=== PATIENT | male | born 1980 | race Caucasian/White ===

== ENCOUNTER 2018-11-23 11:55 | Day surgery (SDC) | payer SELFPAY ==
[~2018-11-23] VITALS: Ht 175.3 cm; Wt 93.1 kg
[~2018-11-23 11:55] MED LIST: ALBIPROI INH; ALBU90OI; ALBU90OI INH; ALBU90OI61 INH; CEPH500 PO; DICL100ER PO; FLUSAL2505; FLUSAL2505 INH; HYDACE10B PO; HYDACE5 PO; IBUP600 PO; IBUP800 PO; NAPR550 PO; Naprosyn375 MG PO; PRED20 PO; RXNAPNA550 PO; Ventolin Soln3 ML INH
--- NOTE | 2018-11-23 12:33 | NUR ---
Ambulatory in Day Surgery History, Chart, Medications and Allergies reviewed before start of procedure.Lungs clear T/O to Auscultation. Patient confirms NPO status and agrees with scheduled surgery. Patient reports completing Chlorhexadine shower X2 prior to admission to hospital.Surgical site prepped with 2% Chlorhexidine cloth wipe. Patient States Post-Procedure ride home has been arranged.
--- NOTE | 2018-11-23 17:00 | NUR ---
INTO STEP VIA [facility]. PT A&OX3.REPORTS 9/10 ABDOMINAL INCISIONAL PAIN. MED WITH FENTANYL 25 MCG IVP X1, REGLAN 10 MG IVPX1, AND NORCO 5/325 MG 1 TAB PO. PT TOLERATING SIPS OF FLUIDS WELL AT THIS TIME. INCISIONS TO ABDOMEN X3 WITH DERMABOND-ALL THREE C/D/I. RX FOR PAIN MED HAS BEEN GIVEN TO PT SPOUSE AND HAS ALREADY BEEN DROPPED OFF AT PT PHARMACY.
--- NOTE | 2018-11-23 18:00 | NUR ---
PT AMBULATED TO [facility] WITHOUT DIFFICULTY. PT REPORTS MILD BURNING WITH URINATION. COMPRESSION SHORTS ON-PT GIVEN ICE BAGS X 2. DERMABOND TO ABDOMEN X3 REMAINS C/D/I. REVIEWED DISCHARGE INSTRUCTIONS WITH PT AND HIS JAVED. BOTH PT AND HIS SPOUSE VERBALIZE/DEMONSTRATE UNDERSTANDING.PT DISCHARGED TO HOME, OUT VIA WHEELCHAIR-BELONGINGS AND DISCHARGE INSTRUCTIONS ON HAND.
--- NOTE | 2018-11-27 09:51 | NUR ---
11/27/18 0951 Marlyn Andrade CONFIRMED COUNTS WITH Raymond CHAVEZ RN.
== END 2018-11-23 18:00 | disposition home or self-care (01) ==
LOC: ORSCMMR 11:55 → ORD 13:30 → ORSCMMR 13:30
PROVIDERS: Surgery
PROC: 8E0W4CZ Robotic Assisted Procedure of Trunk Region, Percutaneous Endoscopic Approach (ICD-10-PCS; principal; 2018-11-23 13:00)
PROC: 0YU64JZ Supplement Left Inguinal Region with Synthetic Substitute, Percutaneous Endoscopic Approach (ICD-10-PCS; principal; 2018-11-23 13:00)
DX: K40.30 Unilateral inguinal hernia, with obstruction, without gangrene, not specified as recurrent (principal); Z87.891 Personal history of nicotine dependence; J45.909 Unspecified asthma, uncomplicated; Z79.899 Other long term (current) drug therapy
CPT/HCPCS: 49650; S2900; A9270-GY; C1781; J0690; J1100; J1885; J2250; J2405; J2704; J2710; J2765; J3010; J7120